=== PATIENT | female | born 1960 | race Caucasian/White ===

== ENCOUNTER 2017-06-24 06:49 | Day surgery (SDC) | payer MEDICARE, MEDICAID ==
[2017-06-24] MEDS ORDERED: LIDOCAINE 1% W/EPI 1:200,000 MPF 30ML SQ ONE (12:27)
[2017-06-24] MEDS ORDERED: BUPIVACAINE 0.5% W/EPI MPF 30 ML VIAL IVP ONE (12:27)
[2017-06-24] MEDS ORDERED: HYDROCODONE/APAP 7.5/325MG TABLET PO ONE (13:17)
[2017-06-24] MEDS ORDERED: MIDAZOLAM HCL 2MG/2ML VIAL IV ONE (14:00)
[2017-06-24] MEDS ORDERED: FENTANYL PF 100MCG/2ML VIAL IV ONE (14:00)
[2017-06-24] MEDS ORDERED: PROPOFOL 10 MG/ML VIAL IV ONE (14:00)
[2017-06-24] MEDS ORDERED: LIDOCAINE 2% MDV (20MG/ML) 20ML VIAL IV ONE (14:00)
--- NOTE | 2017-06-24 15:08 | Operative Note - [place] ---
DATE OF SURGERY: 06/24/17 PREOPERATIVE DIAGNOSIS: CERVICAL SPONDYLOSIS WITHOUT MYELOPATHY, ICD-10 CODE = M47.812. OPERATION: RADIOFREQUENCY RHIZOTOMY BILATERAL CERVICAL FACETS 3-4 AND 4- 5. SURGEON: CHANELLE SOTO D.O. ANESTHESIA: LOCAL SEDATION. ANESTHESIA PROVIDER: SUSSY LAND CRNA. INDICATION: This patient presents with primary neck pain. Examination shows tenderness in the cervical spine. Range of motion does cause pain to the neck with extension. Diagnostics show extensive multiple levels of spondylosis. A facet series at 3-4 to 5-6, 75-90% pain control. Due to the revised insurance guidelines, which limit number of levels, she is here for 3-4 and 4-5 bilateral. PROCEDURE: Intravenous line, vital sign monitoring, IV sedation, prepped, draped, sterile technique. Under imaging, cervical facet levels at 3-4 and 4-5 were identified and marked bilaterally. Skin infiltrated. A 22-gauge rhizotomy cannula positioned. Stimulation trials conducted. Rhizotomy burn performed. Local with anti-inflammatory into the sites. Topical antibiotics. Sterile dressing applied. We will monitor and evaluate. cc: Dr. Martinez JOB NUMBER: [id number] MTDD
== END 2017-06-24 09:45 | disposition home or self-care (01) ==
LOC: SUR 06:49
PROVIDERS: ATTEND Pain Medicine Interventional Pain Medicine
DX: M47.812 Spondylosis without myelopathy or radiculopathy, cervical region (principal); E11.9 Type 2 diabetes mellitus without complications; Z79.4 Long term (current) use of insulin; Z79.84 Long term (current) use of oral hypoglycemic drugs; I10 Essential (primary) hypertension; E78.00 Pure hypercholesterolemia, unspecified; E03.9 Hypothyroidism, unspecified
CPT/HCPCS: 64633; 64634; 01936; 36416; 82948; J3010